=== PATIENT | male | born 1945 | race Two or more races ===

== ENCOUNTER 2024-07-20 12:41 | Emergency (ER) | payer MEDICARE ==
[~2024-07-20] VITALS: Ht 177.8 cm; Wt 79.4 kg
[2024-07-20 12:48] VITALS: TEMP 97.8
[2024-07-20] MEDS ORDERED: LIDOCAINE 1%-EPI 1:100,000 20 ML VIAL ONE (13:11)
[2024-07-20] MEDS: LIDOCAINE 1% INJ 50 ML MDV IJ ONE (15:15)
[2024-07-20] MEDS: BACI/NEOM/POLY B OINT PKT 1 UDPKT PACKET TP ONE (16:00)
[2024-07-20 16:54] VITALS: BP 130/73; O2SAT 100
== END 2024-07-20 16:15 | disposition home or self-care (01) ==
LOC: ER 12:53
DX: S51.811A Laceration without foreign body of right forearm, initial encounter (principal); Z60.2 Problems related to living alone; W01.0XXA Fall on same level from slipping, tripping and stumbling without subsequent striking against object, initial encounter; Y93.89 Activity, other specified; Y92.89 Other specified places as the place of occurrence of the external cause; Y99.8 Other external cause status
CPT/HCPCS: 99282; 12002; A6403; J3490

== ENCOUNTER 2024-08-01 07:29 | Emergency (ER) | payer MEDICARE ==
[~2024-08-01] VITALS: Ht 185.4 cm; Wt 80.7 kg
[2024-08-01 07:37] VITALS: BP 105/96; TEMP 97.9; O2SAT 98
== END 2024-08-01 07:44 | disposition home or self-care (01) ==
LOC: ER 07:29
DX: S51.811D Laceration without foreign body of right forearm, subsequent encounter (principal); Z48.02 Encounter for removal of sutures; Z60.2 Problems related to living alone; X58.XXXD Exposure to other specified factors, subsequent encounter